=== PATIENT | male | born 1970 | race Asian ===

== ENCOUNTER 2018-09-09 12:36 | Emergency (ER) | payer OTHER ==
[2018-09-09] MEDS ORDERED: Ketorolac Tromethamine 30 MG/ML VIAL ONE (14:03)
== END 2018-09-09 14:20 | disposition home or self-care (01) ==
LOC: ERS 12:36
DX: S16.1XXA Strain of muscle, fascia and tendon at neck level, initial encounter (principal); F17.200 Nicotine dependence, unspecified, uncomplicated; V43.52XA Car driver injured in collision with other type car in traffic accident, initial encounter
CPT/HCPCS: 96372; J1885